=== PATIENT | female | born 1955 | race Caucasian/White ===

== ENCOUNTER 2021-09-23 06:01 | Day surgery (SDC) | payer BC ==
[2021-09-23] MEDS ORDERED: Lactated Ringers 1,000 ML IV SCH (06:30)
[2021-09-23 06:58] VITALS: BP 107/84; PULSE 74; O2SAT 99
== END 2021-09-23 07:17 | disposition home or self-care (01) ==
LOC: SDC 06:01
PROVIDERS: ATTEND Family Medicine
DX: Z53.8 Procedure and treatment not carried out for other reasons (principal)
CPT/HCPCS: 82947; 93005

== ENCOUNTER 2022-09-26 06:03 | Day surgery (SDC) | payer MEDICARE, OTHER ==
[2022-09-26] MEDS ORDERED: Lactated Ringers 1,000 ML IV SCH (06:30)
[2022-09-26] MEDS ORDERED: DIPRIVAN 200 MG/20 ML IV ONE (07:22)
[2022-09-26] MEDS ORDERED: Xylocaine-Mpf 2% 5 Ml Vial ONE (07:23)
[2022-09-26] MEDS ORDERED: ROBINUL ONE (07:33)
[2022-09-26 08:22] VITALS: O2SAT 100
[2022-09-26 08:42] VITALS: BP 150/88; PULSE 85
--- NOTE | 2022-09-26 14:01 | OP ---
SURGERY DATE/TIME: 09/26/2022 0728 PREOPERATIVE DIAGNOSIS: Screening exam. POSTOPERATIVE DIAGNOSIS: Diverticulosis otherwise normal colon. PROCEDURE: Colonoscopy. SURGEON: Dr. Baires. ANESTHESIA: MAC. Medications given by anesthesia department. HISTORY: The patient is a 67-year-old presenting now for screening colonoscopy. The patient was appraised of the risks of the procedure including the risk of perforation, phlebitis, untoward reaction to medication, bleeding and missed lesions. The patient verbalized her understanding and desired to have the procedure performed. DESCRIPTION OF PROCEDURE: The patient was given the medications by the anesthesia department. She had continuous pulse oximetry, ECG monitoring and intermittent blood pressure monitoring during the examination. She was placed in the left lateral decubitus position. A digital rectal examination was performed and revealed normal anal sphincter tone and no masses. The flexible Olympus pediatric colonoscope was used to intubate the rectum. A view of the colon was developed sequentially to the cecum. Upon insertion and withdrawal, including a retroflex view in the rectum, no mucosal lesions other than diverticula were noted. The scope was removed from the patient who tolerated the procedure well and was sent back to OP recovery in good condition. The prep was noted to be fair.
== END 2022-09-26 08:55 | disposition home or self-care (01) ==
LOC: SDC 06:03
PROVIDERS: ATTEND Family Medicine
DX: Z12.11 Encounter for screening for malignant neoplasm of colon (principal); K57.30 Diverticulosis of large intestine without perforation or abscess without bleeding
CPT/HCPCS: J2704